=== PATIENT | male | born 1955 | race Caucasian/White ===

== ENCOUNTER → 2019-11-15 | Outpatient (CLI) | payer BC | LOC: PT 13:29 | DX: Z47.1 Aftercare following joint replacement surgery (principal); Z96.651 Presence of right artificial knee joint ==

== ENCOUNTER 2020-02-08 08:30 | Outpatient (RCR) | payer BC | END 2020-02-08 09:00 | disposition still patient (30) | LOC: PT 08:30 | DX: Z47.1 Aftercare following joint replacement surgery (principal); Z96.651 Presence of right artificial knee joint; Z98.890 Other specified postprocedural states ==

== ENCOUNTER 2021-11-27 08:27 | Outpatient (RCR) | payer BC | END 2021-12-13 | disposition home or self-care (01) | LOC: PT | DX: M17.12 Unilateral primary osteoarthritis, left knee (principal) ==

== ENCOUNTER 2021-12-14 07:55 | Outpatient (RCR) | payer BC | END 2022-01-13 14:04 | disposition home or self-care (01) | LOC: PT 07:55 | DX: M17.12 Unilateral primary osteoarthritis, left knee (principal) ==